=== PATIENT | male | born 1935 | race Caucasian/White ===

== ENCOUNTER 2016-10-12 16:18 | Emergency (ER) | payer OTHER, MEDICARE ==
[2016-10-12] MEDS ORDERED: LIDOCAINE HCL 1%/EPI 1:100,000 - 20 ML VIAL SUBCUT ONE (16:26)
--- NOTE | 2016-10-12 16:30 | PDOC ---
Skin Rash/Insect/Abscess HPI - General Chief Complaint: Laceration / Wound Stated Complaint: LACERATION HEAD Date Seen by Provider: 10/12/16 Time Seen by Provider: 16:24 Source: POSITIVE: Patient, Spouse Exam Limitations: POSITIVE: No limitations Nurse's Notes Reviewed & Considered: Yes - History of Present Illness Initial Comments: Patient comes in today with laceration of his scalp. He had a portion of a tent camper fall onto the crown of his head approximately 3 hours prior to presentation here in the emergency department. He denies any loss of consciousness. He states he is not on any blood thinners at this time. Have you received a tetanus shot in the past 10 years?: Yes Body Location Affected: REPORTS: Scalp Timing: REPORTS: Abrupt Duration: 1-3 hours Severity: Moderate Quality: REPORTS: "Pain" Identified Causes: REPORTS: Yes When Exposed: REPORTS: Just Prior to Sx Onset Where Exposed: REPORTS: Home Suspected Etiology: REPORTS: Other (Portion of a tent camper fell onto his head. ) Similar Symptoms Previously: No Recent Care Received: REPORTS: Denies Any Prior Injuries Related to Current Complaint?: No - Patient Home Medications Home Medications: Home Medications Vit A,C & E/Lutein/Minerals [Ocuvite With Lutein Tablet] 2 tab PO QD #90 tab Vitamin E Mixed [Vitamin E Natural Blend] 2 tab PO QD cap 10/09/13 Multivitamin [Daily Vitamin] 1 tab ORAL QD tab 11/19/13 Ibuprofen 600 mg PO QID #30 tab 09/12/14 Omeprazole 1 cap PO BID PRN #60 cap 10/21/15 Mirtazapine 1 tab PO QHS #30 tab 12/02/15 Naproxen Sodium [Aleve] 1 cap PO QHS #30 cap 12/02/15 Terazosin HCl 5 mg PO BID #180 cap 12/02/15 Sildenafil Citrate [Viagra] 1 tab PO QD PRN #10 tab 10/04/16 - Patient Allergies Allergies/Adverse Reactions: Allergies Allergy/AdvReac Type Severity Reaction Status Date / Time No Known Drug Allergies Allergy NOT Verified 10/12/16 16:23 APPLICABLE Past Medical History - heen HEENT History: Cataracts Additional HEENT History: OCCASIONAL LEFT EAR INFECTIONS Cardiovascular History: Hypertension Respiratory History: Sleep Apnea, Home CPAP Use Gastrointestinal History: Irritable Bowel Syndrome Genitourinary History: Denies History Endocrine History: Denies History Musculoskeletal History: Denies History Prosthesis or Implant: No Additional Musculoskeletal History: FALL 25 YEARS AGO WITH BACK AND HEAD INJURY. TWISTING INJURY 20 YEARS AGO WITH 2 DISCS TO THE LOWER BACK RUPTURED. Neurological History: Ch Palsy Additional Neurological History: HISTORY OF BELLS PALSY FROM YRS AGO Blood Disorders: Denies History Psychiatric History: Depression, Anixety Disorders History of Sexually Transmitted Diseases: No Cancer Treatment / Date(s) of Treatment: XRT IN 2006/ XRT IN 2000 WITH SEED IMPLANT BOOST IN 2001 PROSTATE AND THROA History of MDRO: No History of Other Communicable Diseases: No Alcohol Use: Occasionally Substance Use Type: None Previous Surgical History: Yes Type / Date of Surgery: BLEPHAROPLASTY BILATERAL/ CATARACT EXT BILAT/ PROSTATE SEED IMPLANT/ COLONOSCOPY X 3/ THROAT SCRAPED X 2 FOR CA CELLS/R CTR Anesthesia Reactions: No Malignant Hyperthermia: No Significant Family History: Cancer, Diabetes ROS - Limitations ROS Limitations: No Limitations Constitution: REPORTS: Denies Symptoms Cardiovascular: REPORTS: Denies Cardiac Symptoms Respiratory: REPORTS: Denies Resp Symptoms Neurological: REPORTS: Denies Neuro Symptoms Gastrointestinal: REPORTS: Denies GI Symptoms Endocrine: REPORTS: Denies Symptoms Musculoskeletal: REPORTS: Denies MS Symptoms Genitourinary: REPORTS: Denies Symptoms Eyes: REPORTS: Denies Symptoms ENT: REPORTS: Denies Symptoms Skin: REPORTS: Other (laceration to crown of head.) Lympathic: REPORTS: Denies Lympathic Symptoms Immunologic: POSITIVE: Denies Symptoms Psychiatric: POSITIVE: Denies Psych Symptoms Skin Rash/Insect/Abscess Exam - General Appearance General Appearance: REPORTS: Alert, Cooperative, No Acute Distress - Skin Skin: REPORTS: Warm, Dry, Normal Color Skin Location: REPORTS: Scalp (7 cm.) Skin Character: REPORTS: Symmetric - Extremities Extremity: Non-Tender: (All Extremities), Normal ROM: (All Extremities), Normal Inspection: (All Extremities) - HEENT HEENT: POSITIVE: Eyes Inspection Nml, Ears Inspection Nml, Nose Inspection Nml, PERRL, EOMI, Other (scalp laceration) - Neck Neck: REPORTS: Trachea Midline - Respiratory Respiratory: REPORTS: No Respiratory Distress - Neurological / Psychological Neurological: REPORTS: Affect Apporpriate, Oriented X3, family reunification specialist Normal As Tested Procedures - Laceration/Wound Repair Did patient have a laceration repair: Yes Site of Laceration/Wound: Scalp Wound Length (cm): 7 Wound's Depth, Shape: Into subcutaneous tissue, Linear Time of Suture Placement:: 17:05 Distal CMS: (N/A) Skin Prep: Betadine Prep Local Anesthesia Used - Indicate Amt Used in Comment: Lidocaine 1% with Epinephrine: Yes (4ml) Irrigated w/ Saline (mL): 25 Wound Explored: No foreign body removed Wound Debrided: Minimal Wound Repaired With: [place] Number of Zaida: 5 Drain Placement: No Sterile Dressing Applied?: No Splint Applied?: No Sling Applied?: No Skin Rash/Abscess Progress - Patient's Progress Pain Medication Addressed: POSITIVE: No Status: POSITIVE: Improved MDM / ED Course: Patient brought to the emergency Department, examined. His wound was cleaned with Betadine, irrigated with normal saline. The wound was then infiltrated with 1% lidocaine with epinephrine resulted in excellent anesthesia. Wound was closed with surgical zaida, total of 5 zaida were placed with excellent skin edge reapproximation, and good hemostasis. Patient received instructions in wound care, and instructions to return in 7 days for staple removal. Nebulizer Treatment Given:: No - Consult Counseled: POSITIVE: Patient, Family, RE: DX Patient Care Time - Estimated PCT Patient Care Time (In Minutes): 20 Vital Signs - Recent Vital Signs Vital Signs: Vital Signs (Last 8 hours) Temp Pulse Resp BP Pulse Ox 10/12/16 16:19 98.1 F 84 18 182/108 93 - VS Reviewed Vital Signs Reviewed: Yes Discharge Clinical Impression: Laceration - injury Discharge Disposition: Discharged to Home Condition: Good Patient Instructions Given at Discharge: Laceration (ED)
[2016-10-12 16:35] VITALS: RESP 18; TEMP 98.1
== END 2016-10-12 17:15 | disposition home or self-care (01) ==
LOC: ER 16:18
DX: S01.01XA Laceration without foreign body of scalp, initial encounter (principal); W20.8XXA Other cause of strike by thrown, projected or falling object, initial encounter
CPT/HCPCS: 12002; 99282

== ENCOUNTER → 2016-11-22 | Outpatient (CLI) | payer OTHER, MEDICARE ==
--- NOTE | 2016-11-22 10:48 | DI ---
RIGHT KNEE, 11/22/2016 9:36 AM: Clinical History: Right knee pain. Previous Exam: 10/03/2012. 4 views are submitted. The AP and tunnel projections are weight bearing views. There is no acute soft tissue, osseous, or joint abnormality. There is severe joint space narrowing of the medial compartme nt with bony proliferative change involving the medial margins of the medial femoral condyle and medi al tibial plateau. The lateral and patellofemoral compartments are intact. Progressive bony ossificat ions have developed at the attachment sites of the quadriceps and patellar tendons to the patella pro bably related to prior partial tears in both tendons. Bony densities are present in the distal aspect of the patellar tendon also probably related to a previous partial tear. 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 Readin. Severe degenerative arthritic disease involving the medial compartment. 2. Probable old partial tears with subsequent heterotopic bone formation development in the quadrice ps and patellar tendons. 3. Synovial osteochondromatosis.
== END ==
LOC: ORTHO 09:51
PROVIDERS: ATTEND Orthopaedic Surgery
DX: M25.561 Pain in right knee (principal); M17.11 Unilateral primary osteoarthritis, right knee; D48.0 Neoplasm of uncertain behavior of bone and articular cartilage
CPT/HCPCS: 73564

== ENCOUNTER → 2016-11-30 | Outpatient (CLI) | payer OTHER, MEDICARE | LOC: MMPC 09:00 | DX: J06.9 Acute upper respiratory infection, unspecified (principal); C61 Malignant neoplasm of prostate; C14.0 Malignant neoplasm of pharynx, unspecified; E66.9 Obesity, unspecified; G47.30 Sleep apnea, unspecified; I10 Essential (primary) hypertension; K63.5 Polyp of colon; M17.11 Unilateral primary osteoarthritis, right knee | CPT/HCPCS: 99213; G0463 ==

== ENCOUNTER → 2017-02-14 | Outpatient (CLI) | payer OTHER, MEDICARE | LOC: MMPC 11:11 | DX: C61 Malignant neoplasm of prostate (principal); E66.9 Obesity, unspecified; G47.30 Sleep apnea, unspecified; I10 Essential (primary) hypertension; Z86.010 Personal history of colon polyps | CPT/HCPCS: 99213; G0463 ==

== ENCOUNTER 2017-03-29 04:14 | Observation (INO) | payer OTHER, MEDICARE ==
[2017-03-29] MEDS ORDERED: Sodium Chloride 0.9% 1,000 ML PRIMARY IV ONE (04:45)
[2017-03-29 05:10] LABS: BASOPHILS # (AUTO) 0.05 10*3/UL; BASOPHILS % (AUTO) 0.6 % (0-1); EOSINOPHILS # (AUTO) 0.11 10*3/UL; EOSINOPHILS % (AUTO) 1.4 % (0-8); HEMATOCRIT 41.2 % (42.0-52.0); HEMOGLOBIN 13.6 g/dL (14.0-18.0); LYMPHOCYTES # (AUTO) 1.77 10*3/uL; MEAN CORPUSCULAR HEMOGLOBIN 29.8 PG (27-31); MEAN CORPUSCULAR VOLUME 90.4 FL (80-90); MEAN PLATELET VOLUME 10.6 FL (7.4-12.2); MONOCYTES # (AUTO) 0.68 10*3/UL (0.3-0.8); MONOCYTES % (AUTO) 8.6 % (5-15); RED BLOOD COUNT 4.56 10^6/uL (4.70-6.10)
[2017-03-29 05:16] LABS: CALCIUM 8.4 mg/dL (8.7-10.7); SERUM ALBUMIN 3.3 g/dL (3.5-4.8)
[2017-03-29 05:18] LABS: PLATELET MORPHOLOGY COMMENT NORMAL MORPHOLOGY (NORM); RBC MORPHOLOGY COMMENT NORMAL MORPHOLOGY (NORM); WBC MORPHOLOGY COMMENT NORMAL MORPHOLOGY (NORM)
[2017-03-29 06:00] LABS: APPEARANCE,SYNOVIAL FLUID CLOUDY (CLEAR, STRA); COLOR,SYNOVIAL FLUID RED (CLR, STRW); CRYSTALS, SYNOVIAL FLUID NONE SEEN (NS); NEUTROPHILS,SYNOVIAL FLUID 97.1 %
[2017-03-29] MEDS ORDERED: Vancomycin-PHA to Dose IV PRN ×2 (06:19→09:47)
[2017-03-29] MEDS ORDERED: cefTRIAXone Inj 2 GM in Sodium Chloride 0.9% 100 ML IV ONE (06:20)
--- NOTE | 2017-03-29 06:27 | PDOC ---
Gen Adult / Medical Screen HPI - General Chief Complaint: Lower Extremity Problem/Injury Stated Complaint: Right Knee Swelling and Redness Date Seen by Provider: 03/29/17 Time Seen by Provider: 04:15 Source: POSITIVE: Patient - History of Present Illness Initial Comments: Patient is an 81-year-old male who presents to the emergency department with the chief complaint of right knee pain and swelling. Patient has a history of arthritis and sinus primary care provider several days ago where they did a arthrocentesis and removed a effusion in the right joint. At that time they injected the joint with cortisone. He states that he's been experiencing worsening redness and swelling of that knee joint. He's been wrapping it with an Migue wrap but the pain is severe. He denies any chest pain shortness of breath fevers chills nausea vomiting dysuria hematuria. - Patient Home Medications Home Medications: Home Medications Vit A,C & E/Lutein/Minerals [Ocuvite With Lutein Tablet] 2 tab PO QD #90 tab Vitamin E Mixed [Vitamin E Natural Blend] 2 tab PO QD cap 10/09/13 Multivitamin [Daily Vitamin] 1 tab ORAL QD tab 11/19/13 Ibuprofen 600 mg PO QID #30 tab 09/12/14 Omeprazole 1 cap PO BID PRN #60 cap 10/21/15 Mirtazapine 1 tab PO QHS #30 tab 12/02/15 Naproxen Sodium [Aleve] 1 cap PO QHS #30 cap 12/02/15 Sildenafil Citrate [Viagra] 1 tab PO QD PRN #10 tab 10/04/16 Hydrocodone/Acetaminophen [Lortab 5-325 Mg Tablet] 1 tab PO Q8H PRN #40 tab Terazosin HCl 1 cap PO BID #180 cap 12/30/16 Acetaminophen/Diphenhydramine [Tylenol Pm Ex-Strength Caplet] 1 cap PO PRN PRN 03/29/17 - Patient Allergies Allergies/Adverse Reactions: Allergies Allergy/AdvReac Type Severity Reaction Status Date / Time No Known Drug Allergies Allergy NOT Unverified 02/14/17 09:29 APPLICABLE Past Medical History - heen HEENT History: Cataracts Additional HEENT History: OCCASIONAL LEFT EAR INFECTIONS Cardiovascular History: Hypertension Respiratory History: Sleep Apnea, Home CPAP Use Gastrointestinal History: Irritable Bowel Syndrome Genitourinary History: Denies History Endocrine History: Denies History Musculoskeletal History: Denies History, Arthritis Prosthesis or Implant: No Additional Musculoskeletal History: FALL 25 YEARS AGO WITH BACK AND HEAD INJURY. TWISTING INJURY 20 YEARS AGO WITH 2 DISCS TO THE LOWER BACK RUPTURED. Neurological History: Ch Palsy Additional Neurological History: HISTORY OF BELLS PALSY FROM YRS AGO Blood Disorders: Denies History Psychiatric History: Depression, Anxiety Disorders History of Sexually Transmitted Diseases: No Male Reproductive History: Denies History Cancer Treatment / Date(s) of Treatment: XRT IN 2006/ XRT IN 2000 WITH SEED IMPLANT BOOST IN 2001 PROSTATE AND THROA In Past Year Been Physically Harmed or Verbally Threatened: No History of MDRO: No History of Other Communicable Diseases: No Tobacco Use: Never Smoker Alcohol Use: Occasionally Substance Use Type: None Previous Surgical History: Yes Type / Date of Surgery: BLEPHAROPLASTY BILATERAL/ CATARACT EXT BILAT/ PROSTATE SEED IMPLANT/ COLONOSCOPY X 3/ THROAT SCRAPED X 2 FOR CA CELLS/R CTR Anesthesia Reactions: No Malignant Hyperthermia: No Significant Family History: Cancer, Diabetes ROS - Limitations ROS Limitations: No Limitations Constitution: REPORTS: Denies Symptoms Cardiovascular: REPORTS: Denies Cardiac Symptoms Respiratory: REPORTS: Denies Resp Symptoms Neurological: REPORTS: Denies Neuro Symptoms Gastrointestinal: REPORTS: Denies GI Symptoms Endocrine: REPORTS: Denies Symptoms Musculoskeletal: REPORTS: Joint Pain, Other (Right knee pain and swelling) Genitourinary: REPORTS: Denies Symptoms Eyes: REPORTS: Denies Symptoms ENT: REPORTS: Denies Symptoms Skin: REPORTS: Rash, Other (Erythema over the right knee) Lympathic: REPORTS: Other (1+ pitting edema in the right lower extremity) Immunologic: POSITIVE: Denies Symptoms Psychiatric: POSITIVE: Denies Psych Symptoms Gen Adult/Medical Screen Exam - General Appearance General Appearance: POSITIVE: Alert, Cooperative, No Acute Distress, No Evidence of Trauma - HEENT HEENT: POSITIVE: Head Inspection Nml, Eyes Inspection Nml, Oral/Dental Inspect. Nml, Pharynx Inspect. Nml, PERRL, EOMI - Neck Neck: POSITIVE: Normal Inspection, Thyroid Normal - Respiratory Respiratory: POSITIVE: No Respiratory Distress, Breath Sounds Normal, Chest Non- Tender - Cardiovascular Cardiovascular: POSITIVE: Regular Rate & Rhythm, No Murmur, No Gallop, PMI Normal - Abdomen Abdomen: Soft: (All Quadrants), No Guarding: (All Quadrants), No Rebound: (All Quadrants), No Distention: (All Quadrants) - Back Back: POSITIVE: Normal Inspection - Neurological / Psychological Mental Status: POSITIVE: Mood Normal, Affect Normal Reflexes: Achilles (R): 2+, Achilles (L): 2+ - Skin Skin: POSITIVE: Warm, Erythema, Other (Erythema and swelling of the right knee) - Extremities Extremity: Edema / Swelling: (RLE), Tender: (RLE) Additional Extremities Details: Significant swelling of the right knee, erythema. Procedures - Additional Procedures Additional Procedures: Arthrocentesis (Site: Right knee. Indication: Evaluation for septic arthritis. Consent obtained verbally from patient. Anatomical landmarks were identified by palpation. The site was cleaned and prepped with chlorhexidine. A 22-gauge needle was introduced with approximately 6 mL of bloody purulent synovial fluid aspiration. The needle was then withdrawn and pressure was applied and a Band-Aid applied. Patient tolerated the procedure well.) Gen Adlt/Medical Scrn Progress - Results Reviewed by me Lab Results Reviewed: Yes Lab Results:: Laboratory Results 03/29/17 03/29/17 03/29/17 Range/Units 04:42 04:50 04:55 WBC 7.92 (4.8-10.8) 10^3/uL RBC 4.56 L (4.70-6.10) 10^6/uL Hgb 13.6 L (14.0-18.0) g/dL Hct 41.2 L (42.0-52.0) % MCV 90.4 H (80-90) FL MCH 29.8 (27-31) PG MCHC 33.0 (33-37) g/dL RDW Std Deviation 46.7 (39-50) fL RDW Coeff of Yovani 14.4 (11.5-14.5) % Plt Count 204 (140-350) 10*3/uL MPV 10.6 (7.4-12.2) FL Immature Gran % (Auto) 0.1 (0-5) % Neut % (Auto) 67.0 (50-80) % Lymph % (Auto) 22.3 (10-50) % [place] % (Auto) 8.6 (5-15) % Eos % (Auto) 1.4 (0-8) % Baso % (Auto) 0.6 (0-1) % Immature Gran # (Auto) 0.01 10*3/UL Neut # (Auto) 5.30 10*3/UL Lymph # (Auto) 1.77 10*3/uL [place] # (Auto) 0.68 (0.3-0.8) 10*3/UL Eos # (Auto) 0.11 10*3/UL Baso # (Auto) 0.05 10*3/UL WBC Morphology Comment Normal morphology (NORM) Plt Morphology Comment Normal morphology (NORM) RBC Morph Comment Normal morphology (NORM) PT 10.7 (9.7-11.4) secs INR 1.04 (0.00-5.90) N/A Sodium 143 (135-145) meq/L Potassium 3.9 (3.8-5.2) meq/L Chloride 105 (98-112) meq/L Carbon Dioxide 26 (23-33) meq/L Anion Gap 12 (5-20) BUN 21 (7-22) mg/dL Creatinine 1.0 (0.70-1.50) mg/dL Estimated GFR (>60 ml/min/1.73m(2)) BUN/Creatinine Ratio 21.00 H (6-20) Glucose 107 (78-110) mg/dL Calculated Osmolality 298.0 H (267-292) mOsm/kg Lactic Acid 1.0 (0.70-2.10) MMOL/L Calcium 8.4 L (8.7-10.7) mg/dL Total Bilirubin 0.8 (0.3-1.2) mg/dL AST 24 (21-57) IU/L ALT 48 (21-72) IU/L Alkaline Phosphatase 51 (38-126) IU/L Total Protein 6.1 (6.1-8.0) g/dL Albumin 3.3 L (3.5-4.8) g/dL Globulin 2.8 (2.50-4.10) g/dL Albumin/Globulin Ratio 1.10 L (1.3-2.0) mg/g Synovial Color Red (CLR, STRW) Synovial Appearance Cloudy (CLEAR, STRA) Synovial Volume 6 mL Synovial WBC 43.29 10^3/uL Synovial Neutrophils 97.1 % Synovial Monocytes 2.9 % Synovial Crystals None seen (NS) - Patient's Progress MDM / ED Course: Patient was evaluated in the emergency department. I have a high clinical suspicion that the patient is suffering from septic arthritis. His initial laboratory evaluation does not reveal an elevated white count or an elevated lactate the remainder of his laboratory evaluation was essentially unremarkable. A bedside arthrocentesis was performed by myself with the significant cloudy/purulent drainage. Under synovial fluid analysis this is found to have greater than 40,000 of WBCs and greater than 97% neutrophils. Blood cultures were obtained and are pending at time of admission. Synovial fluid cultures pending at time of admission as well as Gram stain. Patient was treated empirically with vancomycin and Rocephin IV for antibiotic coverage. He was given 1 L of normal saline in the emergency department. I discussed these findings with Dr. Wise the on-call orthopedist who agreed to evaluate the patient in the emergency department for a washout in the OR. Patient will be admitted to the orthopedic service for further evaluation for septic arthritis. Patient understands the plan of care and agrees. Status stable at time of admission. Patient Care Time - Estimated PCT Patient Care Time (In Minutes): 150 Vital Signs - Recent Vital Signs Vital Signs: Vital Signs (Last 8 hours) Temp Pulse Resp BP Pulse Ox 03/29/17 04:20 96.6 F L 91 18 164/117 95 Discharge Clinical Impression: Septic arthritis, Swelling of right knee joint Condition: Stable
[2017-03-29] MEDS ORDERED: MIDAZOLAM 5 MG/1 ML ONE (06:48)
[2017-03-29] MEDS ORDERED: fentaNYL Inj 250 MCG/5 ML VIAL ONE (06:48)
[2017-03-29] MEDS ORDERED: LIDOCAINE MPF 2% - 5 ML (20 MG/1 ML) ONE (06:48)
[2017-03-29] MEDS: Lactated Ringers 1,000 ML PRIMARY IV ONE ×2 (07:07→10:00)
[2017-03-29] MEDS ORDERED: Lactated Ringers 1,000 ML PRIMARY IV ONE (07:07)
[2017-03-29] MEDS ORDERED: ONDANSETRON 4 MG/2 ML VIAL ONE (07:49)
[2017-03-29] MEDS ORDERED: HYDROmorphone 2 MG/1 ML ONE (07:49)
[2017-03-29] MEDS ORDERED: KETOROLAC 30 MG/1 ML VIAL ONE (07:49)
[2017-03-29] MEDS ORDERED: Sodium Chloride 0.9% 1,000 ML ONE (08:17)
[2017-03-29] MEDS ORDERED: NALOXONE 0.4 MG/1 ML VIAL ONE (08:32)
[2017-03-29] MEDS ORDERED: Sodium Chloride 0.9% vial 10 ML ONE (08:32)
[2017-03-29] MEDS ORDERED: Prochlorperazine Tab 10 MG TAB PO PRN (08:35)
[2017-03-29] MEDS ORDERED: BISACODYL 10 MG SUPPOSITORY RECTAL PRN (08:35)
[2017-03-29] MEDS ORDERED: ACETAMINOPHEN 325 MG TABLET PO PRN (08:35)
[2017-03-29] MEDS ORDERED: CALCIUM CARBONATE 500 MG (TUMS) CHEWABLE TABLET PO PRN (08:35)
[2017-03-29] MEDS ORDERED: BISACODYL 5 MG TABLET PO PRN (08:35)
[2017-03-29] MEDS ORDERED: Ondansetron ODT Tab 8 MG TAB PO PRN (08:35)
[2017-03-29] MEDS ORDERED: ONDANSETRON 4 MG/2 ML VIAL IVP PRN (08:35)
[2017-03-29] MEDS ORDERED: MAG HYDROX/AL HYDROX/SIMETH 30 ML SUSP PO PRN (08:35)
[2017-03-29] MEDS ORDERED: diphenhydrAMINE 25 MG CAPSULE PO PRN ×2 (08:35→22:15)
[2017-03-29] MEDS ORDERED: Lactated Ringers 1,000 ML PRIMARY IV SCH (08:45)
--- NOTE | 2017-03-29 10:18 | CONSULT ---
Consult Note - Consult Consult Date: 03/29/17 Reason for Consult: PostOp Consulation : Ortho Requesting Physician: Dr. Wise Primary Care Provider: Marques Romo MD - History of Present Illness History of Present Illness: This is an 81 years old male with medical history significant for history of hypertension, history of prostate cancer before status post radiation therapy and seed implant, sleep apnea, arthritis in the right knee who is been having some pain in the right knee going on for about a week. He went to the office of Dr. Medrano last Josué they took some fluid from the knee because of the swelling and pain and apparently had a cortisone shot. However things continued to worsen with worsening pain and swelling and because of that he came into the ER aspiration of the fluid showed elevated WBC with count >40,000 and 97% neutrophils and presence of gram-positive cocci so he was the admitted to the hospital and had washout of the knee done by Dr. Wise today and the hospitalist service were consulted for management of medical issues. Patient did receive a dose of for Rocephin and vancomycin done in the ER. Currently the patient is denying symptoms there is no pain in his knee, no shortness of breath, no chest pain no nausea. He denied history of fever or shakes. Past Medical History Medical History: 1. Prostate cancer status post radiation therapy in 2000 with seed implant in 2001. 2. 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 3. GERD. 4. History of Ch's palsy. 5. History of sleep apnea. 6. Hypertension Surgical History: 1. Bilateral cataract extraction. 2. History of colonic polyps. 3. Right carpal tunnel release Family History: Reviewed an Not Pertinent Past Social History: Doesn't smoke, doesn't drink. His son lives with him. He is fairly independent. Tobacco Use: Never Smoker Substance Use Type: None Alcohol Use: None Review of Systems - Review of Systems All Systems: Reviewed & No Additional Complaints Except as Stated Medication / Allergies Home Medications: Home Medications Medication Instructions Recorded Confirmed Type Vit A,C & E/Lutein/Minerals 2 tab PO QD #90 tab 10/09/13 03/29/17 History [Ocuvite With Lutein Tablet] Vitamin E Mixed [Vitamin E Natural 2 tab PO QD cap 10/09/13 03/29/17 History Blend] Multivitamin [Daily Vitamin] 1 tab ORAL QD tab 02/24/14 07/04/17 History Ibuprofen 600 mg PO QID #30 tab 09/12/14 03/29/17 Clinic Omeprazole 1 cap PO BID PRN #60 cap 10/21/15 03/29/17 Clinic Mirtazapine 1 tab PO QHS #30 tab 12/02/15 03/29/17 Clinic Naproxen Sodium [Aleve] 1 cap PO QHS #30 cap 12/02/15 03/29/17 Clinic Sildenafil Citrate [Viagra] 1 tab PO QD PRN #10 tab 10/04/16 03/29/17 Clinic Hydrocodone/Acetaminophen [Lortab 1 tab PO Q8H PRN #40 tab 11/22/16 03/29/17 Clinic 5-325 Mg Tablet] Terazosin HCl 1 cap PO BID #180 cap 12/30/16 03/29/17 Clinic Acetaminophen/Diphenhydramine 1 cap PO PRN PRN 03/29/17 03/29/17 History [Tylenol Pm Ex-Strength Caplet] Allergies/Adverse Reactions: Allergies Allergy/AdvReac Type Severity Reaction Status Date / Time No Known Drug Allergies Allergy NOT Verified 03/29/17 09:33 APPLICABLE Exam - Vitals Vital Signs: Vital Signs Pulse Rate [Apical] 70 Respiratory Rate 20 Oxygen Flow Rate 2 Oxygen Delivery Method Nasal Cannula Height 5 ft 8 in Weight 214 lb - General General Appearance: POSITIVE: No Acute Distress, Obese - Head Head Exam: POSITIVE: Normal Inspection, Atraumatic - Eye Eye Exam: POSITIVE: Normal Appearance - ENT ENT Exam: POSITIVE: Normal Exam - Neck Neck Exam: POSITIVE: Normal Inspection - Respiratory Respiratory Exam: POSITIVE: Clear to Auscultation - Bilaterally - Cardiovascular Cardiovascular Exam: POSITIVE: RRR - GI/Abdominal GI/Abdominal Exam: POSITIVE: Normal Bowel Sounds, Non Tender, Non Distended, Soft, No Organomegaly - Rectal Rectal Exam: POSITIVE: Deferred - External Exam: POSITIVE: Deferred - Extremities Additional Extremities Exam Details: Dressing applied to the right knee - Back Back Exam: POSITIVE: Normal Inspection - Neurological Neurological Exam: POSITIVE: Alert, Oriented x 3, CN II-XII Intact, Moves All Extremities Equally - Psychiatric Psychiatric Exam: POSITIVE: Normal Affect Results - Labs CBC and BMP: 03/29/17 04:42 03/29/17 04:55 Assessment and Plan - Patient Problems (1) Septic arthritis Current Visit: Yes Status: Acute Comment: Status post washout of the right knee, he received vancomycin will continue with vancomycin until we have the culture result. Pain medication were already written for him. Once we have the culture likely end up needing a PICC line. (2) Hypertension Current Visit: Yes Status: Acute Comment: Continue previous medications (3) Sleep apnea Current Visit: Yes Status: Acute Comment: Continue CPAP
[2017-03-29] MEDS: Clindamycin 900mg (Premix) 900 MG in Dextrose 1 BAG IV SCH ×3 (10:25→22:36)
[2017-03-29] MEDS: IBUPROFEN 400 MG TABLET PO PRN ×2 (14:44→21:35)
[2017-03-29] MEDS: oxyCODONE-ACETAMINOPHEN 5-325 TAB PO PRN ×3 (15:53→21:00)
[2017-03-29] MEDS: Terazosin Cap 5 MG CAP PO SCH (21:35)
[2017-03-30] MEDS: oxyCODONE-ACETAMINOPHEN 5-325 TAB PO PRN ×5 (01:40→21:52)
[2017-03-30 04:42] LABS: BASOPHILS # (AUTO) 0.02 10*3/UL; BASOPHILS % (AUTO) 0.3 % (0-1); EOSINOPHILS # (AUTO) 0.17 10*3/UL; EOSINOPHILS % (AUTO) 2.3 % (0-8); HEMATOCRIT 35.4 % (42.0-52.0); HEMOGLOBIN 11.7 g/dL (14.0-18.0); LYMPHOCYTES # (AUTO) 1.93 10*3/uL; MEAN CORPUSCULAR HEMOGLOBIN 30.2 PG (27-31); MEAN CORPUSCULAR HGB CONC 33.1 g/dL (33-37); MEAN CORPUSCULAR VOLUME 91.5 FL (80-90); MEAN PLATELET VOLUME 10.2 FL (7.4-12.2); MONOCYTES % (AUTO) 8.1 % (5-15); NEUTROPHILS # (AUTO) 4.64 10*3/UL; RED BLOOD COUNT 3.87 10^6/uL (4.70-6.10)
[2017-03-30] MEDS: IBUPROFEN 400 MG TABLET PO PRN (04:42)
[2017-03-30 04:53] LABS: PLATELET MORPHOLOGY COMMENT NORMAL MORPHOLOGY (NORM); RBC MORPHOLOGY COMMENT NORMAL MORPHOLOGY (NORM); WBC MORPHOLOGY COMMENT NORMAL MORPHOLOGY (NORM)
[2017-03-30 05:27] LABS: ERYTHROCYTE SEDIMENTATION RATE 18 MM/HR (0-15)
[2017-03-30] MEDS: NORMAL SALINE 10 ML SYRINGE FLUSH IVP PRN ×2 (08:00→11:47)
[2017-03-30] MEDS: Terazosin Cap 5 MG CAP PO SCH ×2 (08:42→19:59)
[2017-03-30] MEDS: ENOXAPARIN SODIUM 30 MG/0.3 ML SYRINGE SUBCUT SCH (08:43)
--- NOTE | 2017-03-30 09:46 | PDOC(PROG) ---
Interval History: Patient is doing great he said he really wants to go home but he understands not being able to we are still waiting for cultures to come back he has multiple things scheduled with his partner. And will like to be discharged as soon as possible. Has no other complaints Objective : Data - Labs CBC and BMP: 03/30/17 04:30 03/29/17 04:55 Labs - Last 24 Hours: Laboratory Results 03/30/17 Range/Units 04:30 WBC 7.37 (4.8-10.8) 10^3/uL RBC 3.87 L (4.70-6.10) 10^6/uL Hgb 11.7 L (14.0-18.0) g/dL Hct 35.4 L (42.0-52.0) % MCV 91.5 H (80-90) FL MCH 30.2 (27-31) PG MCHC 33.1 (33-37) g/dL RDW Std Deviation 47.1 (39-50) fL RDW Coeff of Yovani 14.3 (11.5-14.5) % Plt Count 193 (140-350) 10*3/uL MPV 10.2 (7.4-12.2) FL Immature Gran % (Auto) 0.1 (0-5) % Neut % (Auto) 63.0 (50-80) % Lymph % (Auto) 26.2 (10-50) % [place] % (Auto) 8.1 (5-15) % Eos % (Auto) 2.3 (0-8) % Baso % (Auto) 0.3 (0-1) % Immature Gran # (Auto) 0.01 10*3/UL Neut # (Auto) 4.64 10*3/UL Lymph # (Auto) 1.93 10*3/uL [place] # (Auto) 0.60 (0.3-0.8) 10*3/UL Eos # (Auto) 0.17 10*3/UL Baso # (Auto) 0.02 10*3/UL WBC Morphology Comment Normal morphology (NORM) Plt Morphology Comment Normal morphology (NORM) RBC Morph Comment Normal morphology (NORM) ESR 18 H (0-15) MM/HR C-Reactive Protein 17.2 H (0.0-0.9) mg/dL Objective : Exam - General General Appearance: Cooperative - Head Head Exam: Normal Inspection, Normocephalic, Atraumatic - Respiratory Respiratory Exam: Clear to Auscultation - Bilaterally, Breathing Non Labored, Normal To Percussion - Cardiovascular Cardiovascular Exam: RRR, No Murmur, No Clicks, No Gallops - GI/Abdominal GI/Abdominal Exam: Non Tender, Non Distended, Soft - Extremities Additional Extremities Exam Details: Trace edema bilaterally - Neurological Neurological Exam: Alert, Oriented x 3, No Facial Droop, Speech Intact / Clear Assessment and Plan - Patient Problems (1) Septic arthritis Current Visit: Yes Status: Acute Comment: Continue vancomycin, cultures are pending once cultures are back and now down antibiotics if indicated (2) Hypertension Current Visit: Yes Status: Acute Comment: Today's blood pressures 170 systolic we will stop ibuprofen this could definitely be detrimental to his high blood pressure we will do a recheck if still high will add Norvasc 5 mgtrace bilateral edema I will give him 1 time dose of Lasix 40 discussed with nursing
[2017-03-30] MEDS ORDERED: FUROSEMIDE 10 MG/1 ML - 4 ML IVP ONE (11:01)
[2017-03-30] MEDS ORDERED: Lidocaine 1% 10 MG/ML - 20 ML VIAL SUBCUT PRN (13:49)
[2017-03-30] MEDS ORDERED: HEPARIN 500 UNIT/5 ML SYRINGE FOR CENTRAL LINE IVP PRN (13:49)
[2017-03-30] MEDS ORDERED: NORMAL SALINE 10 ML SYRINGE FLUSH IV PRN (13:49)
[2017-03-30] MEDS ORDERED: LIDOCAINE 2% 20 MG/ML - 20 ML VIAL SUBCUT PRN (13:49)
--- NOTE | 2017-03-30 17:10 | ORTHO.PROG ---
Last Taken Vital Signs: Vital Signs - Last Taken Temperature 97.6 F 03/30/17 13:00 Pulse Rate 74 03/30/17 13:00 Respiratory Rate 20 03/30/17 13:00 Blood Pressure 165/72 03/30/17 13:00 Pulse Ox 92 03/30/17 13:00 Subjective: Discussed pt with nurse and reviewed labs. Pt is stable today, cultures are pending. Discussed case with ID who recommended IV daptomycin daily until sensitivities are finalized. Pt will f/u with ID as an outpatient. Pt will likely be discharged home tomorrow after PICC line placement. Ortho PA will round in AM and pull drain.
--- NOTE | 2017-03-30 17:44 | DI ---
ULTRASOUND GUIDED VENOUS ACCESS, 03/30/2017 1:51 PM Clinical History: Right knee infection. The patient will require long-term IV antibiotic therapy. Ult rasound guided needle placement for PICC line access. Previous Exam: None at this facility. 2D ultrasound was used to identify the left brachial vein for venous access to place a PICC line. The puncture site was prepped with ChloraPrep with Tint and draped in the usual sterile fashion. This ve in was successfully cannulated using realtime ultrasound guidance. The introducer sheath was advanced and positioned without difficulty. Reading: Successful and uncomplicated cannulation of the left brachial vein.
--- NOTE | 2017-03-30 17:47 | DI ---
INSERTION OF PICC LINE, 03/30/2017 1:51 PM: Clinical History: Right knee infection. The patient will require long-term IV antibiotic therapy. Technique: A "time out" session was performed to verify the patient's name and date of prior to obtaining informed signed consent prior for this procedure. The left arm was prepped with ChloraPrep with Tint. Venipuncture was achieved under sterile conditions as already described in the ultrasound report. A 5 Turkmen double lumen Bard Power Picc Solo PICC catheter was inserted without difficulty. The tip position was initially identified with an AP portable chest x-ray and then adjusted as necess katie. The standard dry sterile dressing kit was used to secure the catheter. The patient tolerated the procedure well and was discharged in stable condition. Standard orders for wound care and dressing c hanges were written. Scanning Manager: Gil Manley MD Gravel Screener: None. PICC line length: 51 cm. Complications/Medications: None. Reading: PICC line placement as above.
[2017-03-30] MEDS ORDERED: DAPTOMYCIN IV SCH (23:00)
[2017-03-30] MEDS ORDERED: SODIUM CHLORIDE 0.9% IV SCH (23:00)
[2017-03-31 07:53] VITALS: RESP 18; TEMP 97.2
[2017-03-31] MEDS: ENOXAPARIN SODIUM 30 MG/0.3 ML SYRINGE SUBCUT SCH (08:00)
[2017-03-31] MEDS: Terazosin Cap 5 MG CAP PO SCH (08:00)
--- NOTE | 2017-03-31 09:01 | DCSUMMARY ---
Hospitalization Summary Hospital Course: Final Discharge Diagnosis: Current Visit Problems Problem Status Priority Diagnosed Code Hypertension Acute I10 Septic arthritis Acute M00.9 Sleep apnea Acute G47.30 Swelling of knee joint, right Acute M25.461 Diagnostic Data, Laboratory Data, and Procedures of Signifigance: Laboratory Results 03/29/17 03/29/17 03/29/17 Range/Units 04:42 04:50 04:55 WBC 7.92 (4.8-10.8) 10^3/uL RBC 4.56 L (4.70-6.10) 10^6/uL Hgb 13.6 L (14.0-18.0) g/dL Hct 41.2 L (42.0-52.0) % MCV 90.4 H (80-90) FL MCH 29.8 (27-31) PG MCHC 33.0 (33-37) g/dL RDW Std Deviation 46.7 (39-50) fL RDW Coeff of Yovani 14.4 (11.5-14.5) % Plt Count 204 (140-350) 10*3/uL MPV 10.6 (7.4-12.2) FL Immature Gran % (Auto) 0.1 (0-5) % Neut % (Auto) 67.0 (50-80) % Lymph % (Auto) 22.3 (10-50) % Blackford % (Auto) 8.6 (5-15) % Eos % (Auto) 1.4 (0-8) % Baso % (Auto) 0.6 (0-1) % Immature Gran # (Auto) 0.01 10*3/UL Neut # (Auto) 5.30 10*3/UL Lymph # (Auto) 1.77 10*3/uL Blackford # (Auto) 0.68 (0.3-0.8) 10*3/UL Eos # (Auto) 0.11 10*3/UL Baso # (Auto) 0.05 10*3/UL WBC Morphology Comment Normal morphology (NORM) Plt Morphology Comment Normal morphology (NORM) RBC Morph Comment Normal morphology (NORM) ESR (0-15) MM/HR PT 10.7 (9.7-11.4) secs INR 1.04 (0.00-5.90) N/A Sodium 143 (135-145) meq/L Potassium 3.9 (3.8-5.2) meq/L Chloride 105 (98-112) meq/L Carbon Dioxide 26 (23-33) meq/L Anion Gap 12 (5-20) BUN 21 (7-22) mg/dL Creatinine 1.0 (0.70-1.50) mg/dL Estimated GFR (>60 ml/min/1.73m(2)) BUN/Creatinine Ratio 21.00 H (6-20) Glucose 107 (78-110) mg/dL Calculated Osmolality 298.0 H (267-292) mOsm/kg Lactic Acid 1.0 (0.70-2.10) MMOL/L Calcium 8.4 L (8.7-10.7) mg/dL Total Bilirubin 0.8 (0.3-1.2) mg/dL AST 24 (21-57) IU/L ALT 48 (21-72) IU/L Alkaline Phosphatase 51 (38-126) IU/L C-Reactive Protein (0.0-0.9) mg/dL Total Protein 6.1 (6.1-8.0) g/dL Albumin 3.3 L (3.5-4.8) g/dL Globulin 2.8 (2.50-4.10) g/dL Albumin/Globulin Ratio 1.10 L (1.3-2.0) mg/g Synovial Color Red (CLR, STRW) Synovial Appearance Cloudy (CLEAR, STRA) Synovial Volume 6 mL Synovial WBC 43.29 10^3/uL Synovial Neutrophils 97.1 % Synovial Monocytes 2.9 % Synovial Crystals None seen (NS) 03/30/17 Range/Units 04:30 WBC 7.37 (4.8-10.8) 10^3/uL RBC 3.87 L (4.70-6.10) 10^6/uL Hgb 11.7 L (14.0-18.0) g/dL Hct 35.4 L (42.0-52.0) % MCV 91.5 H (80-90) FL MCH 30.2 (27-31) PG MCHC 33.1 (33-37) g/dL RDW Std Deviation 47.1 (39-50) fL RDW Coeff of Yovani 14.3 (11.5-14.5) % Plt Count 193 (140-350) 10*3/uL MPV 10.2 (7.4-12.2) FL Immature Gran % (Auto) 0.1 (0-5) % Neut % (Auto) 63.0 (50-80) % Lymph % (Auto) 26.2 (10-50) % Blackford % (Auto) 8.1 (5-15) % Eos % (Auto) 2.3 (0-8) % Baso % (Auto) 0.3 (0-1) % Immature Gran # (Auto) 0.01 10*3/UL Neut # (Auto) 4.64 10*3/UL Lymph # (Auto) 1.93 10*3/uL Blackford # (Auto) 0.60 (0.3-0.8) 10*3/UL Eos # (Auto) 0.17 10*3/UL Baso # (Auto) 0.02 10*3/UL WBC Morphology Comment Normal morphology (NORM) Plt Morphology Comment Normal morphology (NORM) RBC Morph Comment Normal morphology (NORM) ESR 18 H (0-15) MM/HR PT (9.7-11.4) secs INR (0.00-5.90) N/A Sodium (135-145) meq/L Potassium (3.8-5.2) meq/L Chloride (98-112) meq/L Carbon Dioxide (23-33) meq/L Anion Gap (5-20) BUN (7-22) mg/dL Creatinine (0.70-1.50) mg/dL Estimated GFR (>60 ml/min/1.73m(2)) BUN/Creatinine Ratio (6-20) Glucose (78-110) mg/dL Calculated Osmolality (267-292) mOsm/kg Lactic Acid (0.70-2.10) MMOL/L Calcium (8.7-10.7) mg/dL Total Bilirubin (0.3-1.2) mg/dL AST (21-57) IU/L ALT (21-72) IU/L Alkaline Phosphatase (38-126) IU/L C-Reactive Protein 17.2 H (0.0-0.9) mg/dL Total Protein (6.1-8.0) g/dL Albumin (3.5-4.8) g/dL Globulin (2.50-4.10) g/dL Albumin/Globulin Ratio (1.3-2.0) mg/g Synovial Color (CLR, STRW) Synovial Appearance (CLEAR, STRA) Synovial Volume mL Synovial WBC 10^3/uL Synovial Neutrophils % Synovial Monocytes % Synovial Crystals (NS) Microbiology 03/29/17 04:55 Blood Blood Culture - Preliminary NO GROWTH AFTER 48 HOURS 03/29/17 04:50 Blood Blood Culture - Preliminary NO GROWTH AFTER 48 HOURS 03/29/17 08:38 Knee - Right Gram Stain - Final 03/29/17 08:38 Knee - Right Aerobic Culture - Preliminary 03/29/17 04:50 Synovial Fluid Gram Stain - Final 03/29/17 04:50 Synovial Fluid Body Fluid Culture - Preliminary History and Physical pertinent to Admission: Septic knee right side Past Medical History Medical History: 1. Prostate cancer status post radiation therapy in 2000 with seed implant in 2001. 2. 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 3. GERD. 4. History of Ch's palsy. 5. History of sleep apnea. 6. Hypertension Surgical History: 1. Bilateral cataract extraction. 2. History of colonic polyps. 3. Right carpal tunnel release Family History: Reviewed an Not Pertinent Past Social History: Doesn't smoke, doesn't drink. His son lives with him. He is fairly independent. Tobacco Use: Never Smoker Substance Use Type: None Alcohol Use: None Course of Hospitalization: Is a very nice 81-year-old gentleman, with past medical history significant for hypertension, prostate cancer status post radiation and seed implant, sleep apnea, arthritis in the right knee he had some swelling in the right knee a few weeks ago he was given a cortisone shot things continued to worsen and now was seen in the ER for aspiration and fluid showed the morning and 40,000 white count 97% neutrophils and gram-positive cocci admitted to the hospital and Dr. Wise performed washout. Hospitalist was consulted for medical management. Discussed the case with Dr. Wise who discussed the case with Dr. Wing infectious disease the patient was put on daptomycin and discharged home as per his wishes he will follow-up with Dr. Wing Theodore infectious disease in the morning he will look at the final results and decide on which antibiotic to start him on the length of antibiotic and arrangement for him getting the antibiotic. Patient was advised and knows about all the above also discussed the plan with the nursing and marriage and family social worker. His blood pressure was a little elevated most likely secondary to the pain which has been controlled with regular Tylenol. He was given 1 Norvasc 10 mg blood pressure is improved I will get him a follow-up with his primary care physician for more blood pressure checks before we institute a new medication for this patient I did take him off his NSAIDs as this could definitely contribute to his high blood pressure and considering he was ibuprofen and naproxen which could also be detrimental to his kidneys. On the date of discharge, the patient was examined: Gen.: No acute distress, alert, nontoxic Heart: Regular rate and rhythm, no murmurs, clicks, gallops, or rubs Lungs: Clear to auscultation bilaterally, breathing is nonlabored Abdomen/GI: Normal tones on auscultation, soft, nontender, nondistended Musculoskeletal/extremities: No clubbing, cyanosis, or edema Vitals reviewed and are listed below Vital Signs (24 hrs) Temp Pulse Resp BP Pulse Ox 03/31/17 07:50 97.2 F 85 18 133/70 93 03/31/17 04:50 97.8 F 79 16 162/74 92 03/31/17 01:00 98.6 F 82 18 152/68 91 03/30/17 20:09 98.5 F 88 16 168/82 94 03/30/17 19:00 80 03/30/17 17:00 98.7 F 80 18 186/94 94 03/30/17 13:00 97.6 F 74 20 165/72 92 Assessment and Plan: 1. As per discharge assessments above 2. Disposition: Home home 3. Condition on discharge, stable and improved. 4. Diet: regular diet 5. Activities: resume normal activities 6. Follow-Up: 1. PCP Dr. Romo next week 2. Dr. Lin in the morning 7. Medications at the Time of Discharge: Home Medications Medication Instructions Recorded Confirmed Type Vit A,C & E/Lutein/Minerals 2 tab PO QD #90 tab 10/09/13 03/29/17 History [Ocuvite with Lutein Tablet] Vitamin E Mixed [Vitamin E Natural 2 tab PO QD cap 10/09/13 03/29/17 History Blend] Multivitamin [Daily Vitamin] 1 tab ORAL QD tab 11/19/13 03/29/17 History Omeprazole 1 cap PO BID PRN #60 cap 10/21/15 03/29/17 Clinic Mirtazapine 1 tab PO QHS #30 tab 12/02/15 03/29/17 Clinic Sildenafil Citrate [Viagra] 1 tab PO QD PRN #10 tab 10/04/16 03/29/17 Clinic Hydrocodone/Acetaminophen [Lortab 1 tab PO Q8H PRN #40 tab 11/22/16 03/29/17 Clinic 5-325 Mg Tablet] Terazosin HCl 1 cap PO BID #180 cap 12/30/16 03/29/17 Clinic Acetaminophen/Diphenhydramine 1 cap PO PRN PRN 03/29/17 03/29/17 History [Tylenol Pm Ex-Strength Caplet] DAPTOmycin Inj [Cubicin Inj] 580 mg IV Q24H vial 03/31/17 Rx 8. Time, care, counseling and coordination of care for this discharge is greater than 30 minutes. Exam - Vitals Vital Signs: Vital Signs Temperature 97.2 F Temperature Source Temporal Artery Scan Pulse Rate [Apical] 70 Pulse Rate [Pulse Oximeter] 85 Respiratory Rate 18 Blood Pressure [Right Arm] 133/70 Pulse Ox 93 Oxygen Flow Rate 3 Oxygen Delivery Method Room Air Height 5 ft 8 in Weight 97.25 kg Patient Problems - Patient Problem List (1) Septic arthritis Current Visit: Yes Status: Acute (2) Hypertension Current Visit: Yes Status: Acute
--- NOTE | 2017-03-31 09:26 | DI ---
AP CHEST X-RAY, 03/30/2017 1:51 PM : Clinical History: Verification of PICC line catheter placement. The patient has a knee infection that requires long-term IV antibiotic therapy. Previous Exam: 07/03/2013. There is no acute soft tissue or bony abnormality. Heart size is normal. Lungs are clear. Mediastinal structures are normal. There are no pulmonary nodules. The PICC line catheter tip is located at the junction of the superior vena cava and right atrium. The catheter was withdrawn 3 cm prior to securin g the catheter to the patient's arm. Readin. Normal chest x-ray. 2. The PICC line catheter was withdrawn 3 cm from the position seen on this chest x-ray.
--- NOTE | 2017-03-31 09:54 | PT.PROG ---
Progress Note Progress Note: S. Patient stated that his knee is a little sore this morning, however he is feeling good overall. He reports that he is ready to go home. O. Patient performed supine exercises in the form of; heel slides, quad sets, ankle pumps all x 10. Patient then ambulated 120 feet in the lemons then returned to his room where he was left in his chair with alarm and call light. A. Patient tolerated ambulation and movement very well. He was able to ambulate the full distance with SBG assist. Patient has met all goals at this time. However would continue to benefit from Outpatient therapy. P. continue POC until Discharge.
--- NOTE | 2017-03-31 11:06 | ORTHO.PROG ---
Last Taken Vital Signs: Vital Signs - Last Taken Temperature 97.2 F 03/31/17 07:50 Pulse Rate 85 03/31/17 07:50 Respiratory Rate 18 03/31/17 07:50 Blood Pressure 133/70 03/31/17 07:50 Pulse Ox 93 03/31/17 07:50 Subjective: Seeing patient for Dr. Wise today. Postop day #2. Patient is doing very well and is ready to go home. He denies fevers, chills, calf pain, shortness breath, chest pain. States the swelling in his right leg is gone down quite a bit. He states he has an appointment with Dr. Lin tomorrow. Objective: Constitutional: Alert and oriented 3. Well-developed well-nourished. Sitting up in a recliner. HEENT: Head normocephalic/atraumatic. Respiratory: Breathing is unlabored. Right lower extremity: Trace edema. Right knee Migue wrap removed. There is mild erythema around the knee joint. Mild-moderate effusion. Incisions are intact without drainage. Drain intact with approximately 35 mL of blood-tinged serous fluid. Calf nontender to palpation, no cords. Distal neurovascular intact. Psychologic: Appropriate affect. Normal judgment. Good mood. PROCEDURE: Discussed patient's current status with Dr. Wise who recommends drain removal. The drain sutures were clipped and drain removed without complication. Patient tolerated this well. Dressing was placed and Migue wrap rewrapped. Assessment: 81-year-old male status post right knee I&D on 03/29/2017. Doing well, ready for discharge. Plan: Discussed case via cell phone with Dr. Wise who recommended drain removal and discharge as above. Applied new xeroform, 4x4's and Migue wrap. The patient will see Dr. Lin tomorrow morning in [place] and will be followed by him. Dr. Wise recommends follow-up on 04/13/2017 here in [place]; appointment scheduled at 9:15 AM and given to patient with discharge instructions. He will follow-up with Dr. Wise or our service sooner as needed. Patient understands and agrees with plan.
--- NOTE | 2017-03-31 14:39 | PTI REPORT ---
Thank you for the referral of Barry Spence. He was seen on 03/30/17 for an inpatient evaluation status post I&D of the right knee. SUBJECTIVE: The patient is an 81-year-old male. The patient reports he went to see Dr. Medrano on March 25, 2017 for a Cortisone injection and to have fluid drained off of his knee. He states his knee began getting puffy and he ended up going to the emergency room yesterday morning which led to having an emergency I&D under Dr. Wise's care yesterday. The patient states he has minimal recollection of any of this, but states at this time he is hardly having any pain except just stiffness in his knee and he is hoping to go home as soon as possible. PAST MEDICAL HISTORY: Past medical history can be found in the patient's medical record. OBJECTIVE FINDINGS: Pain: The patient reports a pain level currently of 1/10 on the verbal analog scale (0=no pain, 10=worst pain). Bed mobility/Transfers: The patient is able to perform all bed mobility and transfers with stand by assistance for safety. He did require verbal cues for proper walker management as well as safety concerns on behalf of the therapist. Ambulation: The patient was able to ambulate weight-bearing as tolerated with an altered gait due to lack of flexion/extension of the right lower extremity which demonstrated Grade III edema. The patient was able to ambulate 10 feet within his room. Activities of daily living: The patient was able to perform standing ADLs x5 minutes at the sink. The patient also demonstrated the ability to perform upper and lower extremity dressing activities independently. Edema: Upon observation the patient does have Grade III edema in his right knee as well as a post operative bandage and has a hemovac drain in place. Strength/Range of motion: Strength and range of motion were not formally tested due to status post I&D less than 24-hours. He was able to perform an independent straight leg raise with an extensor lag. ASSESSMENT: Problem List: Decreased mobility Decreased safety awareness with assistive device Decreased endurance Physical Therapy Goals: To be met by discharge from inpatient: Patient will be able to perform all transfers and bed mobility with modified independence with the use of appropriate assistive device. Patient will be able to ascend and descend a flight of stairs with appropriate assistive device with stand by assistance for return to home. Patient will be able to ambulate up to 100 feet with appropriate assistive device for household ambulation. TREATMENT PLAN: Patient will be seen B.I.D during the week and one time per day over the weekend as an inpatient to address the above goals and objectives. INITIAL TREATMENT: Treatment today consisted of the initial evaluation followed by the patient performing all bed mobility and transfers with stand by assist. He received walker training with a standard walker; the patient was unable to ambulate keeping all four feet of the walker down at the same time, so he was issued wheels. The patient was able to perform 5 minutes of ADLs weight-bearing as tolerated at the sink. He performed dressing activities independently and ambulated 10 feet without difficulty. SHARITA
--- NOTE | 2017-03-31 14:46 | PT PM DAY ---
Diagnosis : Status Post I&D of Right Knee PM - Physical Therapy S: The patient denies having any pain and he is hoping he will get to go home tomorrow. O: The patient ambulated from his room all the way downstairs to therapy with walker, gait belt, and contact guard assistance. While downstairs he performed therapeutic exercises and functional activities including gait training up and down one flight of stairs utilizing the walker, NuStep, sit to stands, and box step ups. The patient then ambulated back up to his room. A: The patient was able to ascend and descend the stairs without difficulty using the walker appropriately and is cleared at this time by physical therapy to go home. P: Continue seeing patient BID during the week and one time per day over the weekend until discharge. JARRETD
== END 2017-03-31 10:48 | disposition home or self-care (01) ==
LOC: ER 04:14 → SDSC 07:04 → MED/SURG 08:42 → UNDOADMOB 09:05 → MED/SURG 09:05 → UNDODISOB 03-31 10:48
PROVIDERS: ADMIT Orthopaedic Surgery; ATTEND Orthopaedic Surgery
DX: M00.9 Pyogenic arthritis, unspecified (principal); I10 Essential (primary) hypertension; G47.30 Sleep apnea, unspecified; M25.461 Effusion, right knee
CPT/HCPCS: 20610 ×2; 29871; 36415 ×2; 36569; 71010; 76937; 80053; 83605; 84157; 85025 ×2; 85610; 85652; 86140; 87040; 87070; 87075; 87077; 87185; 87186 ×3; 87205; 89051; 89060; 96361; 96365 ×3; 96366; 96367; 96375; 97110; 97116; 97161; 97530 ×2; 99284 ×2; A4216; J0878; J1650 ×2; J1885; J1940; J2250; J2405; J2704; J3010; Q0163 ×2; J0696; J1170; J2001; J3370; J3490; J7030; J7040; J7050; J7120

== ENCOUNTER → 2017-04-04 | Outpatient (CLI) | payer OTHER, MEDICARE | LOC: MMPC 11:11 | DX: M00.061 Staphylococcal arthritis, right knee (principal) | CPT/HCPCS: 99213; G0463 ==